=== PATIENT | female | born 1965 | race African-American/Black ===

== ENCOUNTER 2023-11-29 00:38 | Emergency (ER) | payer MEDICAID ==
[~2023-11-29] VITALS: Ht 160 cm; Wt 65.0 kg
[2023-11-29 01:28] VITALS: BP 139/90; PULSE 81; RESP 20; TEMP 98.7; O2SAT 99
== END 2023-11-29 07:01 | disposition home or self-care (01) ==
LOC: ER 00:54
DX: S00.83XA Contusion of other part of head, initial encounter (principal); S80.01XA Contusion of right knee, initial encounter; M25.512 Pain in left shoulder; X58.XXXA Exposure to other specified factors, initial encounter; Y93.89 Activity, other specified; Y92.89 Other specified places as the place of occurrence of the external cause; Y99.8 Other external cause status; Z98.890 Other specified postprocedural states
CPT/HCPCS: 73030; 73562; 73590; 70450; 70486; 99284; Z7610; L1830